=== PATIENT | male | born 1945 | race African-American/Black ===

== ENCOUNTER 2022-09-26 19:09 | Inpatient (IN) | payer OTHER ==
[2022-09-26 20:37] LABS: BASO % 0.4 % (0-2.0); EOS % 0.5 % (0-4.5); HEMATOCRIT 24.5 % (35.4-49); HEMOGLOBIN 7.7 GM/dL (11.7-16.9); LYMPH % 21.5 % (8-40); MCH 25.8 pg (25.7-33.7); MCHC 31.4 g/dl (32.0-35.9); MEAN CELL VOLUME 82.3 fl (80-96); MEAN PLT VOLUME 6.4 fl (7.5-11.1); MONO % 6.9 % (3.8-10.2); NEUT % 70.7 % (42.8-82.8); PLATELET COUNT 319 10^3/uL (134-434); RBC 2.98 M/mm3 (4.00-5.60); RDW 17.9 % (11.9-15.9); WHITE BLOOD COUNT 6.1 K/mm3 (4.0-10.0)
[2022-09-26 20:43] LABS: INR 1.58 (0.83-1.09); PROTHROMBIN TIME (PATIENT) 18.3 SEC (9.7-13.0)
[2022-09-26 20:46] LABS: ACTIVATED PTT 43.3 SECONDS (25.2-36.5)
[2022-09-26 20:53] LABS: BLOOD UREA NITROGEN 28.8 mg/dL (7-18); CALCIUM 8.1 mg/dL (8.5-10.1)
[2022-09-26 20:54] LABS: ALBUMIN 2.6 g/dl (3.4-5.0)
[2022-09-26 20:57] LABS: CREATININE 1.4 mg/dL (0.55-1.3)
[2022-09-26 20:58] LABS: BILIRUBIN,TOTAL 0.1 mg/dL (0.2-1); TOT PROT 6.8 g/dl (6.4-8.2)
[2022-09-27 04:03] VITALS: BMI 20.9
[2022-09-27] MEDS: DULoxetine HCL 30 MG CAPSULE.DR PO SCH (09:11)
[2022-09-27] MEDS: metoPROLOL SUCCINATE 25 MG TAB.SR.24H (FP) PO SCH (09:11)
[2022-09-27] MEDS: SENNOSIDES 8.6MG TABLET (FP) PO SCH ×2 (09:11→22:45)
[2022-09-27 09:35] LABS: BASO % 0.5 % (0-2.0); EOS % 0.7 % (0-4.5); HEMOGLOBIN 9.3 GM/dL (11.7-16.9); LYMPH % 25.6 % (8-40); MCH 25.9 pg (25.7-33.7); MCHC 31.9 g/dl (32.0-35.9); MEAN CELL VOLUME 81.2 fl (80-96); MEAN PLT VOLUME 6.3 fl (7.5-11.1); MONO % 7.3 % (3.8-10.2); NEUT % 65.9 % (42.8-82.8); PLATELET COUNT 358 10^3/uL (134-434); RBC 3.57 M/mm3 (4.00-5.60); RDW 17.7 % (11.9-15.9); WHITE BLOOD COUNT 7.6 K/mm3 (4.0-10.0)
[2022-09-27 10:00] LABS: CALCIUM 8.6 mg/dL (8.5-10.1)
[2022-09-27] MEDS ORDERED: FERROUS SO4 325 MG TABLET (FP) PO SCH (10:00)
[2022-09-27 10:01] LABS: ALBUMIN 2.9 g/dl (3.4-5.0); BLOOD UREA NITROGEN 25.7 mg/dL (7-18)
[2022-09-27 10:04] LABS: CREATININE 1.3 mg/dL (0.55-1.3)
[2022-09-27 10:06] LABS: BILIRUBIN,TOTAL 0.4 mg/dL (0.2-1); TOT PROT 7.4 g/dl (6.4-8.2)
[2022-09-27] MEDS ORDERED: PHYTONADIONE 10 MG/1 ML AMP IVPB ONE (14:30)
[2022-09-27] MEDS: PANTOPRAZOLE 40 MG TABLET PO SCH (22:45)
[2022-09-27] MEDS: MELATONIN 5 MG TABLETS PO SCH (22:45)
[2022-09-27] MEDS: POLYETHYLENE GLYCOL (HEALTHYLAX) 3350 17 GM PACKET PO SCH (22:45)
[2022-09-27] MEDS: PRIMIDONE 50 MG TABLET PO SCH (23:06)
[2022-09-28] MEDS: POLYETHYLENE GLYCOL (HEALTHYLAX) 3350 17 GM PACKET PO SCH ×3 (05:57→23:02)
[2022-09-28] MEDS ORDERED: PEG 3350/NA SULF BICARB CL/KCL 4000 ML SOLN.RECON PO ONE (09:00)
[2022-09-28] MEDS: metoPROLOL SUCCINATE 25 MG TAB.SR.24H (FP) PO SCH (09:38)
[2022-09-28] MEDS: DULoxetine HCL 30 MG CAPSULE.DR PO SCH (09:38)
[2022-09-28] MEDS: PANTOPRAZOLE 40 MG TABLET PO SCH ×2 (09:39→23:02)
[2022-09-28] MEDS: SENNOSIDES 8.6MG TABLET (FP) PO SCH ×2 (09:39→23:02)
[2022-09-28 10:33] LABS: BASO % 0.5 % (0-2.0); EOS % 1.5 % (0-4.5); HEMATOCRIT 25.9 % (35.4-49); HEMOGLOBIN 8.4 GM/dL (11.7-16.9); LYMPH % 25.1 % (8-40); MCH 26.2 pg (25.7-33.7); MCHC 32.3 g/dl (32.0-35.9); MEAN CELL VOLUME 80.9 fl (80-96); MEAN PLT VOLUME 6.5 fl (7.5-11.1); MONO % 9.6 % (3.8-10.2); NEUT % 63.3 % (42.8-82.8); PLATELET COUNT 322 10^3/uL (134-434); RDW 17.4 % (11.9-15.9); WHITE BLOOD COUNT 6.5 K/mm3 (4.0-10.0)
[2022-09-28 11:10] LABS: BLOOD UREA NITROGEN 25.3 mg/dL (7-18); CALCIUM 8.3 mg/dL (8.5-10.1)
[2022-09-28 11:14] LABS: CREATININE 1.2 mg/dL (0.55-1.3)
[2022-09-28] MEDS ORDERED: BISACODYL 5 MG TABLET.DR (FP) PO ONE (18:00)
[2022-09-28] MEDS: MELATONIN 5 MG TABLETS PO SCH (23:02)
[2022-09-28] MEDS: PRIMIDONE 50 MG TABLET PO SCH (23:03)
[2022-09-29] MEDS: POLYETHYLENE GLYCOL (HEALTHYLAX) 3350 17 GM PACKET PO SCH ×3 (07:00→21:25)
[2022-09-29] MEDS: metoPROLOL SUCCINATE 25 MG TAB.SR.24H (FP) PO SCH (09:15)
[2022-09-29] MEDS: PANTOPRAZOLE 40 MG TABLET PO SCH ×2 (09:15→21:25)
[2022-09-29] MEDS: DULoxetine HCL 30 MG CAPSULE.DR PO SCH (09:15)
[2022-09-29] MEDS: SENNOSIDES 8.6MG TABLET (FP) PO SCH ×2 (09:16→21:25)
[2022-09-29 10:44] LABS: INR 1.23 (0.83-1.09); PROTHROMBIN TIME (PATIENT) 14.2 SEC (9.7-13.0)
[2022-09-29 10:50] LABS: BASO % 0.5 % (0-2.0); EOS % 1.2 % (0-4.5); HEMATOCRIT 25.8 % (35.4-49); HEMOGLOBIN 8.4 GM/dL (11.7-16.9); LYMPH % 23.9 % (8-40); MCH 26.2 pg (25.7-33.7); MCHC 32.4 g/dl (32.0-35.9); MEAN CELL VOLUME 80.9 fl (80-96); MEAN PLT VOLUME 6.5 fl (7.5-11.1); MONO % 9.7 % (3.8-10.2); NEUT % 64.7 % (42.8-82.8); PLATELET COUNT 310 10^3/uL (134-434); RBC 3.19 M/mm3 (4.00-5.60); RDW 17.2 % (11.9-15.9); WHITE BLOOD COUNT 5.7 K/mm3 (4.0-10.0)
[2022-09-29] MEDS ORDERED: IRON SUCROSE INJECTION 200 MG in SODIUM CHLORIDE 90 ML IVPB ONE (19:12)
[2022-09-29] MEDS: PRIMIDONE 50 MG TABLET PO SCH (21:26)
[2022-09-29] MEDS: MELATONIN 5 MG TABLETS PO SCH (21:26)
[2022-09-29] MEDS: HYDROCORTISONE 2.5% TOPICAL CREAM 30 GM TUBE RC SCH (21:39)
[2022-09-30] MEDS: POLYETHYLENE GLYCOL (HEALTHYLAX) 3350 17 GM PACKET PO SCH ×2 (05:36→15:15)
[2022-09-30 10:22] LABS: HEMATOCRIT 27.9 % (35.4-49); HEMOGLOBIN 9.2 GM/dL (11.7-16.9); MCH 26.7 pg (25.7-33.7); MCHC 32.8 g/dl (32.0-35.9); MEAN CELL VOLUME 81.5 fl (80-96); MEAN PLT VOLUME 6.1 fl (7.5-11.1); PLATELET COUNT 317 10^3/uL (134-434); RBC 3.43 M/mm3 (4.00-5.60); RDW 17.1 % (11.9-15.9); WHITE BLOOD COUNT 5.8 K/mm3 (4.0-10.0)
[2022-09-30 10:54] LABS: BLOOD UREA NITROGEN 21.4 mg/dL (7-18)
[2022-09-30 10:55] LABS: ALBUMIN 2.7 g/dl (3.4-5.0); CALCIUM 8.5 mg/dL (8.5-10.1)
[2022-09-30] MEDS: metoPROLOL SUCCINATE 25 MG TAB.SR.24H (FP) PO SCH (10:56)
[2022-09-30] MEDS: PANTOPRAZOLE 40 MG TABLET PO SCH (10:56)
[2022-09-30] MEDS: DULoxetine HCL 30 MG CAPSULE.DR PO SCH (10:56)
[2022-09-30] MEDS: SENNOSIDES 8.6MG TABLET (FP) PO SCH (10:56)
[2022-09-30 10:58] LABS: CREATININE 1.3 mg/dL (0.55-1.3)
[2022-09-30 10:59] LABS: BILIRUBIN,TOTAL 0.4 mg/dL (0.2-1); TOT PROT 6.9 g/dl (6.4-8.2)
[2022-09-30] MEDS: HYDROCORTISONE 2.5% TOPICAL CREAM 30 GM TUBE RC SCH (11:00)
[2022-09-30 15:04] VITALS: BP 125/67; PULSE 70; RESP 18; TEMP 97.9
== END 2022-09-30 18:55 | DRG 812 ==
LOC: JER 19:09 → JERBED 21:49 → J7W 09-27 04:04 → OBSVTOIN 09-29 14:38
PROVIDERS: ADMIT Internal Medicine; ATTEND Family Medicine
PROC: 30233N0 Transfusion of Autologous Red Blood Cells into Peripheral Vein, Percutaneous Approach (ICD-10-PCS; principal; 2022-09-26)
PROC: 0DB68ZX Excision of Stomach, Via Natural or Artificial Opening Endoscopic, Diagnostic (ICD-10-PCS; 2022-09-29)
PROC: 0DBL8ZX Excision of Transverse Colon, Via Natural or Artificial Opening Endoscopic, Diagnostic (ICD-10-PCS; 2022-09-29)
DX: D62 Acute posthemorrhagic anemia (principal); K62.5 Hemorrhage of anus and rectum; E11.9 Type 2 diabetes mellitus without complications; F32.9 Major depressive disorder, single episode, unspecified; E78.5 Hyperlipidemia, unspecified; M48.061 Spinal stenosis, lumbar region without neurogenic claudication; I11.0 Hypertensive heart disease with heart failure; I50.9 Heart failure, unspecified; K64.8 Other hemorrhoids; R19.5 Other fecal abnormalities; K63.89 Other specified diseases of intestine; D12.3 Benign neoplasm of transverse colon; Z85.46 Personal history of malignant neoplasm of prostate; Z86.010 Personal history of colon polyps
CPT/HCPCS: 0241U-QW; 36415; 36430; 71045-TC-FY; 80048; 80053; 82272; 82728; 82784; 82962; 83540; 83550; 84155; 84165; 85025; 85027; 85045; 85610; 85730; 86140; 86334; 86850; 86900; 86901; 86922; 88305-TC; 93005; 93010; 99285-25; C9803-CS; G0378; J1756; P9058; U0003; U0005